=== PATIENT | female | born 1995 | race Caucasian/White ===

== ENCOUNTER 2017-07-12 00:18 | Emergency (ER) | payer OTHER ==
[~2017-07-12] VITALS: Ht 167.6 cm; Wt 54.0 kg
[2017-07-12 00:29] VITALS: TEMP 36.7; O2SAT 98; Ht 167.6 cm; Wt 54.0 kg
[2017-07-12 01:06] LABS: CALCIUM 8.6 mg/dl (8.5-10.1); CREATININE 0.62 mg/dl (0.60-1.20); POTASSIUM 3.1 mmol/L (3.5-5.1)
--- NOTE | 2017-07-12 06:38 | EMERGENCY ROOM VISIT NOTE ---
History First contact with patient: 00:21 Chief Complaint: ALCOHOL OVERDOSE Stated Complaint: ALCOHOL OVERDOSE Nursing Triage Summary: Pt arrived via [facility] from [facility]. Per EMS, pt found asleep in bathroom at [facility]. PD called and pt able to walk out of bar with one assist. Pt unable to find sober friend. EMS called and pt brought to hospital. Pt reports drinking 8-12 drinks. Denies drug use. Denies trauma or vomiting. History of Present Illness The patient is a 22 year old female who presents to the Emergency Room via S for evaluation of alcohol intoxication. History is limited due to patient's intoxicated state. Per EMS, the patient was found asleep in the bathroom at a bar. The patient admits to drinking 8-12 mixed drinks tonight. She denies any drug use. She denies any trauma. She denies any complaints at this time. Review of Systems Review of systems limited due to patient's intoxicated state. Past Medical/Surgical History Medical Problems: (1) No significant active problems Social History Smoking Status: Never Smoker Alcohol Use: occasionally Occupation Status: [employer] student Current/Historical Medications No Active Prescriptions or Reported Meds Physical Exam Vital Signs Date Time Temp Pulse Resp B/P (MAP) Pulse Ox O2 Delivery O2 Flow Rate FiO2 07/12/17 09:28 108 17 07/12/17 09:13 73 18 97 07/12/17 09:02 112/72 07/12/17 08:58 69 13 97 07/12/17 08:43 85 12 98 07/12/17 08:31 88/54 07/12/17 08:28 80 13 97 07/12/17 08:13 66 13 98 07/12/17 08:01 83/55 07/12/17 07:58 67 13 96 07/12/17 07:43 69 13 99 07/12/17 07:31 103/49 07/12/17 07:28 84 17 97 07/12/17 07:13 88 17 96 07/12/17 07:08 85 19 95 07/12/17 07:01 86/52 07/12/17 06:48 85 07/12/17 06:38 73 12 95 07/12/17 06:31 86/45 07/12/17 06:08 71 12 99 3/25/18 06:01 80/50 07/12/17 05:38 97 14 99 07/12/17 05:33 83/49 07/12/17 05:31 76/51 07/12/17 05:24 67 07/12/17 05:08 72 21 99 07/12/17 05:03 74 14 100 07/12/17 05:01 88/44 07/12/17 04:33 81 14 98 07/12/17 04:31 98/56 07/12/17 04:03 69 14 95 07/12/17 03:58 68 13 95 07/12/17 03:31 90/51 07/12/17 03:28 69 12 97 07/12/17 03:01 87/45 07/12/17 02:58 61 14 95 07/12/17 02:31 87/46 07/12/17 02:28 61 14 96 07/12/17 02:23 60 13 95 07/12/17 02:01 85/53 07/12/17 01:53 57 13 97 07/12/17 01:23 61 16 97 07/12/17 01:18 96 13 96 07/12/17 01:17 106/83 07/12/17 00:48 55 15 96 07/12/17 00:35 55 07/12/17 00:29 98 Room Air 07/12/17 00:29 36.7 82 16 110/70 96 Room Air 07/12/17 00:27 110/70 Physical Exam VITALS: Vitals are noted on the nurse's note and reviewed by myself. Vital signs stable. GENERAL: This is a 22-year-old female, lying on her side, appears to be visibly intoxicated, smells of ETOH. SKIN: The skin was without erythema, edema, or bruising. HEAD: Normocephalic atraumatic. EARS: External auditory canals clear. No hemotympanum. EYES: Pupils equal round and reactive to light and accommodation. NOSE: No deformities noted. MOUTH: No loose or chipped teeth. NECK: No cervical spine tenderness. HEART: Regular rate and rhythm without murmurs gallops or rubs. LUNGS: Clear to auscultation bilaterally without wheezes, rales or rhonchi. ABDOMEN: Soft, nontender. MUSCULOSKELETAL: Full range of motion throughout. Strength intact throughout. NEURO: Patient was alert and oriented to person place and time, but is obviously intoxicated. Speech slurred. Gross sensation intact. Patient cooperative with examiner. Medical Decision & Procedures Laboratory Results 07/12/17 00:36 Test 07/12/17 00:36 Anion Gap 11.0 mmol/L (3-11) Est Creatinine Clear Calc Drug Dose 121.3 ml/min Estimated GFR () 148.3 Estimated GFR (Non- 128.0 BUN/Creatinine Ratio 7.8 (10-20) Calcium Level 8.6 mg/dl (8.5-10.1) Human Chorionic Gonadotropin, Qual NEG (NEG) Ethyl Alcohol mg/dL 285.0 mg/dl (0-3) Medical Decision Differential diagnosis includes alcohol intoxication, drug use, infection, hypoglycemia, head trauma, among others. The patient is a 22-year-old female who presents today for evaluation of probable alcohol intoxication. Labs revealed an alcohol of 285. Kidney function was found to be within normal limits. The patient is slightly hypokalemic. Labs were otherwise unremarkable. There is no evidence of head trauma or infection on exam. The patient was placed on the outpatient psychiatrist and placed in the prone position. They were monitored for an appropriate amount of time and when they were more sober, they were reassessed and discharged home with sober friends. The patient was advised not to drink anymore alcohol today and to follow-up with [facility] for any further concerns. Medication Reconcilliation Current Medication List: was personally reviewed by me Blood Pressure Screening Patient's blood pressure: Normal blood pressure Impression Primary Impression: Alcohol intoxication Departure Information Dispostion Home / Self-Care Condition GOOD Prescriptions No Active Prescriptions or Reported Meds Patient Instructions [facility] Additional Instructions You were evaluated in emergency department for intoxication. This is a sign of Alcohol Abuse and should not be taken lightly. You had a blood alcohol level that was significantly elevated. Over the next 24 hours keep well hydrated and eat light meals. Don't drink any more alcohol. This is important. Please discuss this visit with your Primary Care Provider, [facility] and/or your loved ones. Unless an exceptional circumstance, the Hospital DOES NOT contact anyone during your visit, nor is your Protected Medical Information released to anyone without your approval/request. This means we do not contact your Parents, the Police, [facility], etc. However, you will likely receive a bill from the Hospital and/or your Insurance company, which will usually be sent to the Primary Policy Garcia (often one's Parents) If your incident was on campus, or if the Police were involved, they will often contact the University to make them aware of what happened. Often this will result in you being required to take Alcohol Education classes (ie BASICS class) . Please see information given to you at discharge regarding contact for this. If the Police were involved you will likely be cited for public intoxication. Please contact either [facility] Police or the [place] Police for further information. Call 911 or return to Emergency Department if you develop: Passing out, difficulty breathing, many episodes of vomiting, blood in vomit or stool, abdominal pain, fevers, or other severe symptoms. We are always here to help if you feel you need further evaluation or treatment. Problem Qualifiers Primary Impression: Alcohol intoxication Complication of substance-induced condition: uncomplicated Qualified Codes: F10.920 - Alcohol use, unspecified with intoxication, uncomplicated
[2017-07-12 09:02] VITALS: BP 112/72
[2017-07-12 09:13] VITALS: O2SAT 97
[2017-07-12 09:28] VITALS: PULSE 108
== END 2017-07-12 09:30 | disposition home or self-care (01) ==
LOC: EDBD 00:18 → C.EDB 00:21
DX: F10.920 Alcohol use, unspecified with intoxication, uncomplicated (principal)